=== PATIENT | female | born 1995 | race Caucasian/White ===

== ENCOUNTER → 2021-11-16 09:32 | Outpatient (CLI) | payer BC, SELFPAY ==
[2021-11-17 20:56] LABS: SARS-CoV-2 RNA PCR Positive
== END ==
PROVIDERS: PCP Family Medicine; Visit Provider Family Medicine
DX: U07.1 COVID-19 (principal)
CPT/HCPCS: C9803; U0003; U0005

== ENCOUNTER 2023-09-26 10:20 | Outpatient (CLI) | payer OTHER, SELFPAY ==
[2023-09-26 10:58] LABS: Hematocrit 39.6 % (37.0-47.0); Hemoglobin 13.1 g/dL (12.0-15.0); Mean Corpuscular HGB Conc 33.1 g/dl (32-36); Mean Corpuscular Hemoglobin 29.6 pg (26-34); Mean Corpuscular Volume 89.4 fl (80-100); Mean Platelet Volume 11.5 fl (7.4-10.4); Platelet Count Result 234 k/mm3 (150-375); Red Blood Count 4.43 M/mm3 (4.2-5.4); Red Cell Distribution Width 13.4 % (11.5-14.5); White Blood Count 8.2 K/mm3 (4.5-10.0)
== END 2023-09-26 10:21 | disposition home or self-care (01) ==
LOC: ANHLAB 10:21
PROVIDERS: PCP Family Medicine; Visit Provider Obstetrics & Gynecology
DX: Z01.818 Encounter for other preprocedural examination (principal); N92.0 Excessive and frequent menstruation with regular cycle
CPT/HCPCS: 36415; 85027

== ENCOUNTER 2023-09-27 02:05 | Day surgery (SDC) | payer OTHER, SELFPAY ==
--- NOTE | 2023-09-20 18:05 | PC.NURSE ---
Report to the Outpatient Waiting Room, entrance under the green pavilion located off [facility], at time 0730 on date 09/27/23. Planned Procedure Time: 0930. Time changes happen often and if your time is changed the preop area will call you the afternoon before. - You and your visitor will be asked to self-screen and do not enter if you have any COVID symptoms. - A mask is optional within the hospital at this time. Patients may have clear liquids (water, carbonated beverages, clear teas, apple juice) until 3 hours prior to surgery with a maximum of 20 ounces. 0630 - No food from midnight until time of surgery - Infants may have breast milk until 4 hours before surgery, formula 6 hours prior to surgery. - Children will be allowed to drink immediately following surgery. If applicable, please bring a bottle or sippy cup to assist with drinking. Juice, water, soda, and popsicles are readily available. For infants on formula, please bring formula the day of surgery. Pacifiers are allowed. Take the following medications with a SIP of water the morning of surgery: control, inhaler DO NOT STOP ANY OF YOUR OTHER PRESCRIPTION MEDICATIONS PRIOR TO SURGERY ?EXCEPT THE FOLLOWING Medications to discontinue per physician [email or web address] Date to take last dose 09/26/23- xyzal, 09/24/23- multivitamins & supplements Please no make-up, nail citizen of [place], hairspray, perfume, deodorant, or body powder the day of surgery. No jewelry (including any body piercings) or valuables the day of surgery, leave them at home. Please take a shower or bath the night before, or the morning of, surgery with an antibacterial soap. Wear comfortable, loose fitting clothing. Children are encouraged to wear pajamas. - Jewelry must be removed prior to entering the operating room. Rings and piercings that are not removed may be cut off. - The hospital will not accept responsibility for valuables. - Please leave all valuables, including medications, at home the day of surgery. If you are going home after surgery, a licensed regional owner operator truck driver must drive you home. - NO public transportation without another adult if you receive anesthesia. - We recommend that an adult stay with you for 24 hours following discharge. - We also recommend that you do not drive, make important decision, drink alcoholic beverages, or take any drugs that were not prescribed by your health care provider for at least 24 hours after your discharge time. For Pediatric surgeries, we recommend two adults accompany the child home. Follow any additional instructions given to you from your surgeon. If you or anyone in your household have experienced Covid symptoms in the past week, please notify your surgeon or the nurse liaison at the phone number below for possible testing. Telephone instructions given to Patient- Jose Valenzuela and asked if any additional questions and then verbalized understanding. Patient advised to call surgeon office or pre surgery nurse liaison [phone] if any additional questions.
[2023-09-20 18:14] VITALS: BMI 26.2
--- NOTE | 2023-09-27 07:13 | WPDHPUPDATE1 ---
History and Physical Update Update Date/Time: 09/27/23 07:13 History and Physical has been reviewed, including an updated exam of the patient. There are NO changes in the patient's condition. Risks, benefits, and alternatives have been discussed and questions answered. Patient agrees to proceed with procedure.
[2023-09-27 07:36] VITALS: BP 134/66; PULSE 86; RESP 16; TEMP 37.1; O2SAT 100; BMI 26.9
--- NOTE | 2023-09-27 08:58 | WPDANESEPPF ---
Anes - Initial Pre Proc Eval Procedure: Operation Date: 09/27/23 09:30 Proposed Procedures p Hysteroscopy Dilation and Curettage - Stanley Coughlin MD Date/Time: 09/27/23 08:58 Surgeon: Stanley Coughlin MD Pre Op Diagnosis: Menorrhagia Patient Data Age: 27 Gender: F Height: 1.6 m Weight: 67.2 kg Allergies Allergy/AdvReac Type Severity Reaction Status Date / Time clindamycin Allergy Severe Rash Verified 09/27/23 08:14 levofloxacin [From Levaquin] Allergy Rash Verified 09/27/23 08:14 Cat Dander Allergy Mild Hives Uncoded 09/27/23 08:14 Home Medications Medication Instructions Recorded Confirmed Type levocetirizine 5 mg tablet (Xyzal) 5 mg PO DAILY PRN allergy symptoms 02/06/22 09/20/23 History levalbuterol tartrate 45 2 inh inhalation Q6H PRN shortness 08/27/23 09/20/23 Rx mcg/actuation aerosol inhaler of breath or wheezing #15 grams (Xopenex HFA) Ashlyna 0.15 mg-30 mcg (84)/10 See Rx Instructions PO .COMPLEX 09/04/23 09/20/23 Rx mcg(7) tablets,3 month dose pack #182 ea (L norgest/e.estradiol-e.estrad) Adults Multivitamin 1 tab-cap PO DAILY 09/20/23 09/20/23 History Daily Probiotic 1 tab-cap PO DAILY 09/20/23 09/20/23 History coQ10 (ubiquinol) 1 cap PO DAILY 09/20/23 09/20/23 History Patient hx anesthesia problems: none Family hx anesthesia problems: none Results Review: All pre-operative results and documents have been reviewed as part of the pre-operative evaluation. [facility] Past Medical History Medical History Acute bronchitis Acute non-recurrent maxillary sinusitis BMI 25.0-25.9,adult BMI 26.0-26.9,adult Cat allergies Cellulitis of forearm, left Contact dermatitis and eczema due to plant (~04/25/22) COVID-19 (~10/26/20) COVID-19 (11/13/21) positive test on 11/16/2021. omni variant likely Essential tremor Exposure to COVID-19 virus Fever Ground glass opacity present on imaging of lung (02/02/22) mid right lower lobe 2 1 cm ground-glass opacities on CTA chest ER 02/02/2022. Recheck 6 months Irritable bowel syndrome with constipation and diarrhea Mild intermittent asthma in adult without complication Overweight (BMI 25.0-29.9) Puncture wound of forearm with complication Renal stone Seasonal allergic rhinitis UTI (urinary tract infection) Surgical History Surgical History History of appendectomy (~2012) History of tonsillectomy and adenoidectomy (~2001) Family History Family History Father Malignant neoplasm of prostate Grandparent Alcoholism paternal grandfather Hypertension paternal grandmother maternal grandmother paternal grandfather Diabetes mellitus paternal grandmother maternal grandmother Grandparent Diabetes mellitus, Onset Age: 74 Hypertension Family history of alcoholism Family history of cardiovascular disease Family history of Parkinson's disease Family history of chronic obstructive pulmonary disease Mother Hypertension Patient's mother is in good health Father Asthma Patient's father is in good health Family history of chronic obstructive pulmonary disease Sibling Patient's brother is in good health Social History Social History Smoking status: Never smoker Second hand tobacco smoke exposure: No Alcohol intake: current Drinks per week: 3 Alcohol use details: wine with dinner Substance use: never Substance use type: does not use Lack of Transportation: No Lack of Food: Never True Current Housing: I Have Housing Concerned About Future Housing: No Difficulty Paying Gas/Electric Bills: No Difficulty Paying for Meds: No Currently Unemployed: No Education: Bachelor's Degree Difficulty w/ Childcare or Family Care: No Living arrangements: alone Add
--- NOTE | 2023-09-27 09:43 | W.PM.PROC2 ---
Procedure Note - Detailed Date of Procedure 09/27/23 Pre-op Diagnosis Menorrhagia Post-op Diagnosis Same Procedure Performed Number on hysteroscopy with uterine curettings Surgeon Stanley Coughlin MD Anesthesia MAC Findings Slightly thickened endometrial cavity. Also hypervascularity throughout the uterine cavity consistent with adenomyosis. Description of Procedure Patient prepped and draped usual manner for this procedure. Cervix dilated to allow the hysteroscope placed which was then used to evaluate the endometrial cavity. Hypervascularity was noted throughout, and curettings were then obtained. Hysteroscope was placed again with no evidence of abnormality and at this point the procedure was considered terminated and patient was sent to recovery room in stable condition. Estimated Blood Loss 10 Drains No Packing No Pathology Yes Complications No immediate complications Condition Stable Disposition PACU [facility] Billing Surgery - Charge Forward: Surgery Billing
[2023-09-27 09:46] VITALS: BP 145/100; PULSE 117; RESP 18; O2SAT 99
[2023-09-27] MEDS: LACTATED RINGERS 1,000 ML 30 ML IV CONT ×2 (09:48→10:26)
[2023-09-27] MEDS: fentaNYL CITRATE INJ (*CRX) 100 MCG/2 ML VIAL 25 MCG IV PUSH ×4 (10:08→10:24)
[2023-09-27] MEDS: ONDANSETRON INJ 4 MG/2 ML VIAL IV PUSH (10:08)
[2023-09-27 10:15] VITALS: BP 130/91; PULSE 111; RESP 18; O2SAT 97
[2023-09-27] MEDS: oxyCODONE HCL (*CRX) 5 MG TAB IR PO (10:33)
[2023-09-27 10:45] VITALS: BP 125/59; PULSE 79; RESP 18; O2SAT 100
[2023-09-27 11:15] VITALS: BP 120/60; PULSE 80; RESP 20
== END 2023-09-27 11:22 | disposition home or self-care (01) ==
PROVIDERS: PCP Family Medicine; Visit Provider Obstetrics & Gynecology
PROC: 0U5B8ZZ Destruction of Endometrium, Via Natural or Artificial Opening Endoscopic (ICD-10-PCS; CPT 58563; principal; 2023-09-27 09:30)
DX: N92.0 Excessive and frequent menstruation with regular cycle (principal); J45.20 Mild intermittent asthma, uncomplicated; K58.2 Mixed irritable bowel syndrome; Z79.51 Long term (current) use of inhaled steroids
CPT/HCPCS: 58558; 88305; A9270; J2250; J2405; J2704; J3010; J7120

== ENCOUNTER 2024-01-04 11:55 | Emergency (ER) | payer OTHER, SELFPAY ==
--- NOTE | 2024-01-04 12:16 | ED.URI ---
HPI - URI/Sore Throat General Chief Complaint: Upper Respiratory Infection Stated Complaint: Sore Throat and Fever Time Seen by Provider: 01/04/24 12:16 Source: patient Mode of arrival: ambulatory Limitations: no limitations History of Present Illness HPI Narrative: Patient is a 28-year-old female that presents with sore throat, body aches and fever since Sunday. Currently having cough sore throat and congestion. Patient reports fever highest of 101. Has been taking Tylenol no ibuprofen. Denies any nausea, vomiting diarrhea. Related Data Home Medications Medication Instructions Recorded Confirmed levocetirizine 5 mg tablet (Xyzal) 5 mg PO DAILY PRN allergy symptoms 02/06/22 01/04/24 Allergies Allergy/AdvReac Type Severity Reaction Status Date / Time clindamycin AdvReac Mild Rash Verified 01/04/24 12:27 levofloxacin [From Levaquin] AdvReac Mild Rash Verified 01/04/24 12:27 Cat Dander AdvReac Mild Hives Uncoded 01/04/24 12:27 Review of Systems Review of Systems: All systems reviewed & are unremarkable except as noted in HPI and below Constitutional: Constitutional: Reports body ache(s), Denies chills, Denies fatigue, Reports fever(s), Denies headache(s), Denies malaise and Denies weakness Eyes: Eyes: Denies blurry vision, Denies itchy eyes and Denies loss of vision ENT: Denies otalgia, Denies headache(s), Reports nasal congestion, Denies sinus pain and Reports sore throat Cardiovascular: Cardiovascular: Denies chest pain, Denies irregular heart rhythm and Denies dyspnea Respiratory: Respiratory: Reports cough and Denies dyspnea Gastrointestinal: Gastrointestinal: Denies abdominal pain, Denies diarrhea, Denies nausea and Denies vomiting Musculoskeletal: Musculoskeletal: Denies back pain, Denies myalgias and Denies arthralgias Integumentary/Breasts: Skin/Breast: Denies pruritus and Denies rash Neurologic: Denies headache(s), Denies loss of vision and Denies weakness Psychiatric: Psychiatric: Reports no additional psychiatric complaints Endocrine: Endocrine: Denies fatigue Allergic/Immunologic: Allergic/Immunologic: Denies itchy eyes PMFSH Past Medical History Medical History Acute bronchitis Acute non-recurrent maxillary sinusitis BMI 25.0-25.9,adult BMI 26.0-26.9,adult Cat allergies Cellulitis of forearm, left Contact dermatitis and eczema due to plant (~04/25/22) COVID-19 (~10/26/20) COVID-19 (11/13/21) positive test on 11/16/2021. omni variant likely Essential tremor Exposure to COVID-19 virus Fever Ground glass opacity present on imaging of lung (02/02/22) mid right lower lobe 2 1 cm ground-glass opacities on CTA chest ER 02/02/2022. Recheck 6 months Irritable bowel syndrome with constipation and diarrhea Mild intermittent asthma in adult without complication Overweight (BMI 25.0-29.9) Puncture wound of forearm with complication Renal stone Seasonal allergic rhinitis UTI (urinary tract infection) Surgical History Surgical History History of appendectomy (~2012) History of hysteroscopy (09/27/23) hysteroscopy with uterine curettings / Slightly thickened endometrial cavity. Also hypervascularity throughout the uterine cavity consistent with adenomyosis. History of tonsillectomy and adenoidectomy (~2001) Family History Family History Father Malignant neoplasm of prostate Grandparent Alcoholism paternal grandfather Hypertension paternal grandmother maternal grandmother paternal grandfather Diabetes mellitus paternal grandmother maternal grandmother Grandparent Diabetes mellitus, Onset Age: 74 Hypertension Family history of alcoholism Family history of cardiovascular disease Family history of Parkinson's disease Family history of chronic obstructive pulmonary disease Mother
[2024-01-04 12:35] VITALS: BP 127/62; PULSE 90; RESP 16; TEMP 36.7; O2SAT 100
== END 2024-01-04 13:34 | disposition home or self-care (01) ==
PROVIDERS: Emergency Provider Nurse Practitioner Family; PCP Family Medicine
DX: J06.9 Acute upper respiratory infection, unspecified (principal); Z20.822 Contact with and (suspected) exposure to COVID-19; J45.909 Unspecified asthma, uncomplicated; Z86.16 Personal history of COVID-19
CPT/HCPCS: 87081; 87426; 87804; 87880; 99213; G0463

== ENCOUNTER 2024-05-23 08:54 | Outpatient (CLI) | payer OTHER, SELFPAY ==
[2024-05-23 09:14] LABS: Appearance Urine Clear (Clear); Bilirubin Urine Negative (Negative); Blood Urine Negative (Negative); Color Urine Yellow (Yellow); Glucose Urine UA Negative (Negative); Ketones Urine Negative (Negative); Leukocyte Esterase Ur Negative LEU/UL (Negative); Nitrate Urine Negative (Negative); Protein Urine Negative (Negative); Specific Grav Ur 1.022 (1.001-1.035); Urobilinogen Urine 0.2 mg/dL (<2.0); pH Urine 6.5 (5.0-9.0)
[2024-05-23 09:14] LABS: Basophils Percent Auto 0.1 % (0.2-1.2); Eosinophils Absolute Auto 0.1 K/mm3 (0-0.3); Eosinophils Percent Auto 0.9 % (0-4.4); Hematocrit 43.1 % (37.0-47.0); Hemoglobin 14.2 g/dL (12.0-15.0); Immature Granulocyte Absolute 0.02 K/mm3 (0.00-0.031); Immature Granulocyte Percent A 0.2 % (0-0.5); Lymphocytes Absolute Auto 1.49 K/mm3 (0.9-3.2); Lymphocytes Percent Auto 18.2 % (18.3-44.2); Mean Corpuscular HGB Conc 32.9 g/dl (32-36); Mean Corpuscular Hemoglobin 29.8 pg (26-34); Mean Corpuscular Volume 90.5 fl (80-100); Mean Platelet Volume 11.5 fl (7.4-10.4); Monocytes Absolute Auto 0.4 K/mm3 (0.1-0.6); Monocytes Percent Auto 4.4 % (2.6-8.5); Neutrophils Absolute Auto 6.3 K/mm3 (1.3-6.7); Neutrophils Percent Auto 76.2 % (45.5-73.1); Platelet Count Result 227 k/mm3 (150-375); Red Blood Count 4.76 M/mm3 (4.2-5.4); Red Cell Distribution Width 13.5 % (11.5-14.5); White Blood Count 8.2 K/mm3 (4.5-10.0)
[2024-05-23 09:22] LABS: Add Urine Microscopic? NO
[2024-05-23 09:25] LABS: Alanine Aminotransferase 37 U/L (6-35); Albumin Level 4.9 g/dL (3.5-5.1); Alkaline Phosphatase 47 U/L (38-126); Anion Gap 11 mmol/L (4-12); Aspartate Amino Transferase 31 U/L (14-36); Bilirubin,Total 0.6 mg/dL (0.2-1.3); Blood Urea Nitrogen 19 mg/dL (7-17); Calcium 9.6 mg/dL (8.4-10.2); Carbon Dioxide 23 mmol/L (22-30); Chloride 106 mmol/L (98-107); Cholesterol 159 mg/dL (0-200); Estimated Glomerular Filt Rate > 60; Glucose 94 mg/dL (65-110); HDL Direct 71 mg/dL; Potassium 4.5 mmol/L (3.4-5.0); Sodium 140 mmol/L (137-145); Triglycerides 52 mg/dL (<150)
[2024-05-23 09:36] LABS: LDL Cholesterol Direct 90 mg/dL
[2024-05-23 09:47] LABS: Erythrocyte Sedimentation Rate 10 mm/hr (0-20)
[2024-05-23 10:06] LABS: Iron 103 ug/dL (37-170)
[2024-05-23 10:15] LABS: Percent Iron Saturation 27 % (20-50)
[2024-05-23 10:24] LABS: Rheumatoid Factor < 12.0 IU/ML (<12)
[2024-05-23 10:31] LABS: Folic Acid 7.5 ng/mL (2.76->20)
[2024-05-26 12:24] LABS: ANA Cascade Screen NEGATIVE (NEGATIVE)
[2024-05-26 17:28] LABS: Immunoglobulin A 167 mg/dL (47-310); TTG IGA AB <1.0 U/mL
== END 2024-05-23 08:55 | disposition home or self-care (01) ==
LOC: ANHLAB 08:55
PROVIDERS: PCP Family Medicine; Visit Provider Family Medicine
DX: M25.50 Pain in unspecified joint (principal); K58.2 Mixed irritable bowel syndrome; Z00.00 Encounter for general adult medical examination without abnormal findings; E78.2 Mixed hyperlipidemia
CPT/HCPCS: 36415; 80053; 80061; 81003; 82607; 82728; 82746; 82784; 83540; 83550; 83735; 84439; 84443; 85025; 85652; 86038; 86225; 86235; 86364; 86430

== ENCOUNTER 2024-06-27 14:16 | Outpatient (CLI) | payer OTHER, SELFPAY ==
--- NOTE | ~2024-06-27 | CT_ITS ---
EXAMINATION:CT chest high resolution wo tn DATE: 06/27/2024 14:34 INDICATION: Other nonspecific abnormal findings of lung field. TECHNIQUE: Computed tomography (CT) of the chest was performed without intravenous contrast. Automate d exposure control and iterative reconstruction technique were employed. The dose-length product (DLP ) was 145.76 mGy-cm. COMPARISON: None. FINDINGS: There is no pneumonia or pleural effusion. The heart size is normal. No pericardial effusio n. The bones are unremarkable. IMPRESSION: 1. Normal lungs. Reviewed, dictated and finalized at location A. IMPRESSION: 1. Normal lungs.
== END 2024-06-27 14:17 | disposition home or self-care (01) ==
PROVIDERS: PCP Family Medicine; Visit Provider Family Medicine
DX: R91.8 Other nonspecific abnormal finding of lung field (principal)
CPT/HCPCS: 71250